=== PATIENT | female | born 1985 | race Caucasian/White ===

== ENCOUNTER 2016-12-22 21:38 | Emergency (ER) | payer MEDICAID ==
[2016-12-22 22:11] VITALS: BP 134/86
--- NOTE | 2016-12-22 22:41 | EDM.PDOC ---
[id number] 4d NECK SWELLING Time Seen by Provider: 12/22/16 22:20 Source of Information: Reports: Patient History Limitations: Reports: No Limitations - History of Present Illness INITIAL COMMENTS - FREE TEXT/NARRATIVE: 31-year-old female was had some chronic back, shoulder, and chest wall pains presents today with concerns about her posterior neck because it feels swollen and "fluffy". She is sunburned but does not feel that has anything to do with it. She also feels her throat is tight or scratchy and she is concerned she may be having some type of allergic reaction. She is mainly concerned about the discomfort in her neck. Severity: Mild Associated Symptoms: Reports: Headaches (Slight headache), Malaise. 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: - Infectious Disease History Infectious Disease History: Reports: Chicken Pox - Past Surgical History Musculoskeletal Surgical History: Reports: Other (See Below) Other Musculoskeletal Surgeries/Procedures:: l4 and l5 fussion 2014 Social & Family History - Tobacco Use Smoking Status *Q: Never Smoker Used Tobacco, but Quit: Yes Month Tobacco Last Used: 6 Second Hand Smoke Exposure: No - Caffeine Use Caffeine Use: Reports: Soda - Alcohol Use Days Per Week of Alcohol Use: 0 - Recreational Drug Use Recreational Drug Use: No ED ROS GENERAL - Review of Systems Review Of Systems: See Below Constitutional: Denies: Fever, Chills HEENT: Reports: Throat Swelling (Feels like her throat is scratchy or swollen) Respiratory: Denies: Shortness of Breath Cardiovascular: Reports: Chest Pain (Recurring right lateral chest discomfort) GI/Abdominal: Reports: No Symptoms Musculoskeletal: Reports: Neck Pain, Shoulder Pain Skin: Reports: Other (Erythema from sunburn, no blistering) ED EXAM, GENERAL - Physical Exam Exam: See Below Exam Limited By: No Limitations General Appearance: Alert, No Apparent Distress Eye Exam: Bilateral Eye: EOMI Throat/Mouth: Normal Inspection (There is no physical evidence of swelling, irritation or edema) Neck: Other (I do not appreciate a posterior swelling over the posterior neck). No: Lymphadenopathy (R), Lymphadenopathy (L) Respiratory/Chest: No Respiratory Distress, Lungs Clear Course - Vital Signs Last Recorded V/S: Last Vital Signs Temp 97.2 F 12/22/16 22:15 Pulse 86 12/22/16 22:15 Resp 12 12/22/16 22:15 BP 134/86 12/22/16 22:15 Pulse Ox 97 12/22/16 22:15 - Re-Assessments/Exams Free Text/Narrative Re-Assessment/Exam: 12/22/16 22:39 Reassured the patient that I see no physical findings of any acute inflammatory problem. She may be having some reaction to the sunburn which is chronic generalized myalgias but nothing acute or any thing that needs treatment. We discussed muscle relaxation, anti-inflammatories, just local icing and staying active and decided that no treatment at this time will be pursued. I did encourage her to see her primary care provider in the near future to discuss her chronic myalgias. Departure - Departure Time of Disposition: 22:48 Disposition: Home, Self-Care 01 Condition: good Clinical Impression: Neck pain, musculoskeletal - Discharge Information Instructions: Muscle Pain, Adult Referrals: Yanira Arnold CNM [Primary Care Provider] - Forms: ED Department Discharge Care Plan Goals: OK to continue with some ibuprofen or Tylenol and continue activity as tolerated. Recheck with your primary provider in the next 1 to 2 weeks to discuss your chronic recurring issues. Return anytime sooner if worsening such as fever or increased pain
== END 2016-12-22 22:48 | disposition home or self-care (01) ==
LOC: JP.ED 21:38
DX: M54.2 Cervicalgia (principal); Z98.1 Arthrodesis status
CPT/HCPCS: 99283

== ENCOUNTER 2017-06-13 11:18 | Emergency (ER) | payer MEDICAID ==
--- NOTE | 2017-06-13 13:21 | EDM.PDOC ---
ED HPI GENERAL MEDICAL PROBLEM - General Chief Complaint: Allergic Reaction Stated Complaint: MED REACTION-?/FACIAL SWELLING Time Seen by Provider: 06/13/17 13:00 Source of Information: Reports: Patient, Old Records History Limitations: Reports: No Limitations - History of Present Illness INITIAL COMMENTS - FREE TEXT/NARRATIVE: 32 yo female presents with slight facial puffiness that she thinks is an allergic rxn from her Flexeril. No trouble breathing or swallowing. No itching. No self tx. Called the clinic and was referred to the ER. 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) (none) - Related Data Allergies Allergy/AdvReac Type Severity Reaction Status Date / Time baclofen Allergy Facial Verified 06/13/17 13:05 Swelling gabapentin Allergy Facial Verified 06/13/17 13:05 Swelling Home Meds: Home Meds Cyclobenzaprine [Flexeril] 10 mg PO TID 06/13/17 [History] Orphenadrine [Norflex] 100 mg PO QID PRN #20 tab.er 06/13/17 [Rx] 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: - Infectious Disease History Infectious Disease History: Reports: Chicken Pox - Past Surgical History Musculoskeletal Surgical History: Reports: Other (See Below) Other Musculoskeletal Surgeries/Procedures:: l4 and l5 fussion 2014 Social & Family History - Tobacco Use Smoking Status *Q: Never Smoker Used Tobacco, but Quit: Yes Month Tobacco Last Used: 6 Second Hand Smoke Exposure: No - Caffeine Use Caffeine Use: Reports: Soda - Alcohol Use Days Per Week of Alcohol Use: 0 - Recreational Drug Use Recreational Drug Use: No ED ROS ALLERGIC REACTION - Review of Systems Review Of Systems: See Below Constitutional: Reports: No Symptoms HEENT: Reports: No Symptoms Respiratory: Reports: No Symptoms Cardiovascular: Reports: No Symptoms Endocrine: Reports: No Symptoms GI/Abdominal: Reports: No Symptoms : Reports: No Symptoms Musculoskeletal: Reports: No Symptoms Skin: Reports: Other (facial puffiness) Psychiatric: Reports: No Symptoms ED EXAM GENERAL NO PERIP PULSE - Physical Exam Exam: See Below Exam Limited By: No Limitations General Appearance: Alert, WD/WN, No Apparent Distress Eye Exam: Bilateral Eye: EOMI, Normal Inspection Ears: Normal External Exam, Normal Canal, Hearing Grossly Normal, Normal TMs Nose: Normal Inspection, Normal Mucosa, No Blood Throat/Mouth: Normal Inspection, Normal Lips, Normal Teeth, Normal Oropharynx, Normal Voice, No Airway Compromise Head: Atraumatic, Normocephalic Neck: Normal Inspection, Supple Respiratory/Chest: No Respiratory Distress, Lungs Clear, Normal Breath Sounds, No Accessory Muscle Use, Chest Non-Tender Cardiovascular: Regular Rate, Rhythm, No Edema GI/Abdominal: Normal Bowel Sounds, Soft, Non-Tender Extremities: Normal Inspection, Normal Range of Motion, Non-Tender, No Pedal Edema Neurological: Alert, Oriented, CN II-XII Intact, Normal Cognition, No Motor/ Sensory Deficits Psychiatric: Normal Affect, Normal Mood, Anxious Skin Exam: Warm, Dry, Intact, Normal Color, No Rash, Other (facial puffiness is very minimal) Lymphatic: No Adenopathy Departure - Departure Time of Disposition: 13:21 Disposition: Home, Self-Care 01 Condition: Good Clinical Impression: Medication side effect Qualifiers: Encounter type: initial encounter Qualified Code(s): T88.7XXA - Unspecified adverse effect of drug or medicament, initial encounter - Discharge Information Prescriptions: Orphenadrine [Norflex] 100 mg PO QID PRN #20 tab.er PRN Reason: Pain Referrals: Yanira Arnold CNM [Primary Care Provider] - Forms: ED Department Discharge Additional Instructions: Try holding the Flexeril and substitute Norflex. F/U with your doctor for recheck radha.
[2017-06-13 13:35] VITALS: BP 145/84
== END 2017-06-13 13:36 | disposition home or self-care (01) ==
LOC: JP.ED 11:18
DX: R22.0 Localized swelling, mass and lump, head (principal); T48.1X5A Adverse effect of skeletal muscle relaxants [neuromuscular blocking agents], initial encounter; Z88.8 Allergy status to other drugs, medicaments and biological substances
CPT/HCPCS: 99283

== ENCOUNTER 2019-08-02 19:48 | Emergency (ER) | payer MEDICAID ==
--- NOTE | 2019-08-02 20:26 | EDM.PDOC ---
ED HPI GENERAL MEDICAL PROBLEM - General Chief Complaint: Abdominal Pain Stated Complaint: FAINTED ABD BACK PAIN SOB Time Seen by Provider: 08/02/19 20:18 Source of Information: Reports: Patient, EMS, Family, RN Notes Reviewed History Limitations: Reports: No Limitations - History of Present Illness INITIAL COMMENTS - FREE TEXT/NARRATIVE: 34-year-old female presents emergency department today via EMS services, states she was at home doing fine sudden onset of epigastric abdominal pain while she was in the sauna rated the pain 10 out of 10, she did go to the bathroom which provided some relief she is rating her pain 3 out of 10 at this time has had an abdominal surgery transabdominal approach for a back surgery. 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: , 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 Musculoskeletal History: Reports: Back Pain, Chronic - Infectious Disease History Infectious Disease History: Reports: Chicken Pox - Past Surgical History Female Surgical History: Reports: Dilitation & Evacuation Musculoskeletal Surgical History: Reports: Other (See Below) Other Musculoskeletal Surgeries/Procedures:: l4 and l5 fussion 2015 revision done 2017 Social & Family History - Tobacco Use Smoking Status *Q: Never Smoker - Caffeine Use Caffeine Use: Reports: Coffee Caffeine Use Comment: occ - Recreational Drug Use Recreational Drug Use: No ED ROS GENERAL - Review of Systems Review Of Systems: See Below Constitutional: Reports: No Symptoms HEENT: Reports: No Symptoms Respiratory: Reports: No Symptoms Cardiovascular: Reports: No Symptoms GI/Abdominal: Reports: Abdominal Pain, Flatus. Denies: Constipation, Diarrhea, Nausea, Vomiting : Reports: No Symptoms Musculoskeletal: Reports: No Symptoms ED EXAM, GI/ABD - Physical Exam Exam: See Below Exam Limited By: No Limitations General Appearance: Alert, WD/WN, No Apparent Distress Respiratory/Chest: No Respiratory Distress, Lungs Clear, Normal Breath Sounds, No Accessory Muscle Use, Chest Non-Tender Cardiovascular: Regular Rate, Rhythm, No Murmur GI/Abdominal Exam: Soft, No Organomegaly, No Distention, Tender (Epigastric region) Course - Vital Signs Last Recorded V/S: Last Vital Signs Temp 97.6 F 08/02/19 19:59 Pulse 66 08/02/19 21:58 Resp 16 08/02/19 21:58 BP 112/70 08/02/19 21:58 Pulse Ox 99 08/02/19 21:58 - Orders/Labs/Meds Orders: Active Orders 24 hr Category Date Time Status Iopamidol [Isovue-300 (61%)] Med 08/02/19 20:39 Active 68 ml IV . DIRECTED PRN Lactated Ringers [Ringers, Lactated] 1,000 ml Med 08/02/19 20:30 Active IV ASDIRECTED Sodium Chloride 0.9% [Normal Saline] 74 ml Med 08/02/19 20:45 Active IV ASDIRECTED Sodium Chloride 0.9% [Saline Flush] Med 08/02/19 20:45 Active 10 ml FLUSH ONETIME Medication Orders Lactated Ringer's (Ringers, Lactated) 1,000 mls @ 999 mls/hr IV ASDIRECTED BREE Last Admin: 08/02/19 20:44 Dose: 999 mls/hr Sodium Chloride (Normal Saline) 74 mls @ 3 mls/sec IV ASDIRECTED BREE Last Admin: 08/02/19 20:59 Dose: 3 mls/sec Iopamidol (Isovue-300 (61%)) 68 ml IV . DIRECTED PRN PRN Reason: RADIOLOGY EXAM Stop: 08/03/19 20:40 Last Admin: 08/02/19 20:59 Dose: 68 ml Sodium Chloride (Saline Flush) 10 ml FLUSH ONETIME BREE Last Admin: 08/02/19 21:00 Dose: 10 ml Labs: Laboratory Tests 08/02/19 08/02/19 08/02/19 Range/Units 20:34 20:34 20:34 WBC 5.4 (4.5-11.0) K/uL RBC 3.66 (3.30-5.50) M/uL Hgb 10.7 L (12.0-15.0) g/dL Hct 33.3 L (36.0-48.0) % MCV 91 (80-98) fL MCH 29 (27-31) pg MCHC 32 (32-36) % Plt Count 188 (150-400) K/uL Neut % (Auto) 66 (36-66) % Lymph % (Auto) 26 (24-44) % [place] % (Auto) 6 (2-6) % Eos % (Auto) 1 L (2-4) % Baso % (Auto) 0 (0-1) % Sodium 138 L (140-148) mmol/L Potassium 3.6 (3.6-5.2) mmol/L Chloride 103 (100-108) mmol/L Carbon Dioxide 26 (21-32) mmol/L Anion Gap 12.6 (5.0-14.0) mmol/L BUN 11 (7-18) mg/dL Creatinine 0.7 (0.6-1.0) mg/dL Est Cr Clr Drug Dosing 83.54 mL/min Estimated GFR (MDRD) > 60 (>60) Glucose 112 H (74-106) mg/dL Lactic Acid 0.9 (0.4-2.0) mmol/L Calcium 8.3 L (8.5-10.1) mg/dL Total Bilirubin 0.3 (0.2-1.0) mg/dL AST 16 (15-37) U/L ALT 19 (12-78) U/L Alkaline Phosphatase 38 L (46-116) U/L Total Protein 6.5 (6.4-8.2) g/dL Albumin 3.6 (3.4-5.0) g/dL Globulin 2.9 (2.3-3.5) g/dL Albumin/Globulin Ratio 1.2 (1.2-2.2) Lipase 178 (73-393) U/L Urine Color (YELLOW) Urine Appearance (CLEAR) Urine pH (5.0-8.0) Ur Specific [place] (1.008-1.030) Urine Protein (NEGATIVE) mg/dL Urine Glucose (UA) (NEGATIVE) mg/dL Urine Ketones (NEGATIVE) mg/dL Urine Occult Blood (NEGATIVE) Urine Nitrite (NEGATIVE) Urine Bilirubin (NEGATIVE) Urine Urobilinogen (0.2-1.0) EU/dL Ur Leukocyte Esterase (NEGATIVE) Urine RBC (0-5) Urine WBC (0-5) Ur Epithelial Cells Urine Bacteria Urine Mucus Urine HCG, Qual 08/02/19 08/02/19 Range/Units 20:39 20:39 WBC (4.5-11.0) K/uL RBC (3.30-5.50) M/uL Hgb (12.0-15.0) g/dL Hct (36.0-48.0) % MCV (80-98) fL MCH (27-31) pg MCHC (32-36) % Plt Count (150-400) K/uL Neut % (Auto) (36-66) % Lymph % (Auto) (24-44) % [place] % (Auto) (2-6) % Eos % (Auto) (2-4) % Baso % (Auto) (0-1) % Sodium (140-148) mmol/L Potassium (3.6-5.2) mmol/L Chloride (100-108) mmol/L Carbon Dioxide (21-32) mmol/L Anion Gap (5.0-14.0) mmol/L BUN (7-18) mg/dL Creatinine (0.6-1.0) mg/dL Est Cr Clr Drug Dosing mL/min Estimated GFR (MDRD) (>60) Glucose (74-106) mg/dL Lactic Acid (0.4-2.0) mmol/L Calcium (8.5-10.1) mg/dL Total Bilirubin (0.2-1.0) mg/dL AST (15-37) U/L ALT (12-78) U/L Alkaline Phosphatase (46-116) U/L Total Protein (6.4-8.2) g/dL Albumin (3.4-5.0) g/dL Globulin (2.3-3.5) g/dL Albumin/Globulin Ratio (1.2-2.2) Lipase (73-393) U/L Urine Color Yellow (YELLOW) Urine Appearance Cloudy A (CLEAR) Urine pH 8.5 H (5.0-8.0) Ur Specific [place] 1.020 (1.008-1.030) Urine Protein Negative (NEGATIVE) mg/dL Urine Glucose (UA) Negative (NEGATIVE) mg/dL Urine Ketones Negative (NEGATIVE) mg/dL Urine Occult Blood Negative (NEGATIVE) Urine Nitrite Negative (NEGATIVE) Urine Bilirubin Negative (NEGATIVE) Urine Urobilinogen 0.2 (0.2-1.0) EU/dL Ur Leukocyte Esterase Negative (NEGATIVE) Urine RBC 0-5 (0-5) Urine WBC 0-5 (0-5) Ur Epithelial Cells Many Urine Bacteria Not seen Urine Mucus Many Urine HCG, Qual Negative Meds: Medications Generic Name Dose Route Start Last Admin Trade Name Freq PRN Reason Stop Dose Admin Lactated Ringer's 1,000 mls @ 999 mls/hr 08/02/19 20:30 08/02/19 20:44 Ringers, Lactated IV 999 mls/hr ASDIRECTED BREE Administration Sodium Chloride 74 mls @ 3 mls/sec 08/02/19 20:45 08/02/19 20:59 Normal Saline IV 3 mls/sec ASDIRECTED BREE Administration Iopamidol 68 ml 08/02/19 20:39 08/02/19 20:59 Isovue-300 (61%) IV 08/03/19 20:40 68 ml . DIRECTED PRN Administration RADIOLOGY EXAM Sodium Chloride 10 ml 08/02/19 20:45 08/02/19 21:00 Saline Flush FLUSH 10 ml ONETIME BREE Administration Departure - Departure Time of Disposition: 22:09 Disposition: Home, Self-Care 01 Condition: Fair Clinical Impression: Abdominal pain Qualifiers: Abdominal location: epigastric Qualified Code(s): R10.13 - Epigastric pain - Discharge Information Referrals: Yanira Arnold CNM [Primary Care Provider] - Forms: ED Department Discharge Additional Instructions: Continue to use Tylenol or Motrin as needed for pain control, please followup with your primary care provider in 3-5 days if not better, please call return to the emergency department with worsening of symptoms. Sepsis Event Note - Evaluation Sepsis Screening Result: No Definite Risk - Focused Exam Vital Signs: Vital Signs Temp Pulse Resp BP Pulse Ox 08/02/19 21:58 66 16 112/70 99 08/02/19 19:59 97.6 F 83 16 113/72 99 08/02/19 19:57 97.6 F 83 16 113/72 99 Date Exam was Performed: 08/02/19 Time Exam was Performed: 22:08 - My Orders Last 24 Hours: My Active Orders 08/02/19 20:30 Lactated Ringers [Ringers, Lactated] 1,000 ml IV ASDIRECTED 08/02/19 20:39 Iopamidol [Isovue-300 (61%)] 68 ml IV . DIRECTED PRN 08/02/19 20:45 Sodium Chloride 0.9% [Normal Saline] 74 ml IV ASDIRECTED Sodium Chloride 0.9% [Saline Flush] 10 ml FLUSH ONETIME - Assessment/Plan Last 24 Hours: My Active Orders 08/02/19 20:30 Lactated Ringers [Ringers, Lactated] 1,000 ml IV ASDIRECTED 08/02/19 20:39 Iopamidol [Isovue-300 (61%)] 68 ml IV . DIRECTED PRN 08/02/19 20:45 Sodium Chloride 0.9% [Normal Saline] 74 ml IV ASDIRECTED Sodium Chloride 0.9% [Saline Flush] 10 ml FLUSH ONETIME Plan: Assessment Acuity = acute Site and laterality = epigastric abdominal pain Etiology = unknown Manifestations = none Location of injury = Home Lab values = CBC, CMP, urinalysis unremarkable CT scan does not show any acute process other than large amount of stool Plan I did review lab work CT scan results with her she is again try watchful waiting Tylenol Motrin as needed for pain control follow-up primary care 3 to 5 days if not better This note was dictated using [employer] voice recognition software please call with any questions on syntax or grammar.
[2019-08-02] MEDS ORDERED: Lactated Ringers 1,000 ML IV SCH (20:30)
[2019-08-02] MEDS ORDERED: Iopamidol 612 MG/ML 100 ML Bottle IV PRN (20:39)
[2019-08-02] MEDS ORDERED: Sodium Chloride 0.9% 10 ML Syringe FLUSH SCH (20:45)
[2019-08-02 21:58] VITALS: BP 112/70; PULSE 66
--- NOTE | 2019-08-02 22:00 | CRLCT ---
INDICATION: Epigastric pain. TECHNIQUE: CT abdomen and pelvis acquired with 68 cc of Isovue-300 IV contrast. COMPARISON: None available. FINDINGS: Lower chest: Lung bases are clear. No pleural or pericardial effusions. Liver: No focal lesion. There is mild periportal edema. Trace fluid is also present adjacent to the tip of the liver as seen on image 67 of series 2. the portal, splenic and superior mesenteric veins as imaged are patent. Spleen: Unremarkable. Pancreas: Unremarkable. No CT evidence of acute pancreatitis. Gallbladder and bile ducts: No calcified gallstones or biliary ductal dilatation. Kidneys: Multiple low-density left renal lesions are most consistent with cysts. Bilateral kidneys are otherwise unremarkable. No hydronephrosis. Adrenal glands: Unremarkable. GI tract: No focal inflammatory changes evident in the colon about the hepatic flexure near the trace perihepatic fluid. No evidence of bowel obstruction or acute appendicitis. No free intraperitoneal gas. Vascular structures: Unremarkable. Lymph nodes: Unremarkable. Pelvic Organs: Low-density in the left adnexal region measures 2.7 cm. Uterus and right adnexal region as imaged are unremarkable. Bladder is unremarkable. Trace pelvic free fluid. Bones: Posterior spinal fusion changes of L4 through S1 with long bilateral sacroiliac joint screws appears intact. Anterior interbody fusion changes at L5-S1 also appear intact. No acute osseous abnormality. IMPRESSION: 1. Mild periportal edema with trace perihepatic fluid adjacent to the tip of the liver. Findings are nonspecific, however, correlation for possible hepatitis is recommended. 2. No CT evidence of acute pancreatitis. 3. No bowel obstruction or free intraperitoneal gas. 4. Suspected dominant follicle or cyst in the left ovary measuring 2.7 cm. Trace pelvic free fluid. Dictated by Maco Ricks MD @ 08/02/2019 9:58:35 PM Dictated by: Maco Ricks MD @ 08/02/2019 21:58:55 (Electronically Signed)
== END 2019-08-02 22:28 | disposition home or self-care (01) ==
LOC: JP.ED 19:48
DX: R10.13 Epigastric pain (principal); Z88.2 Allergy status to sulfonamides; Z91.011 Allergy to milk products
CPT/HCPCS: 36415; 74177; 80053; 81001; 81025; 83605; 83690; 85025; 96360; 99285; J7050; J7120; Q9967

== ENCOUNTER 2020-09-10 21:59 | Emergency (ER) | payer MEDICAID ==
[2020-09-10] MEDS ORDERED: Sodium Chloride 0.9% 10 ML Syringe FLUSH PRN (22:20)
[2020-09-10 22:21] VITALS: BP 124/77; PULSE 91
--- NOTE | 2020-09-10 22:48 | EDM.PDOC ---
ED HPI GENERAL MEDICAL PROBLEM - General Chief Complaint: Abdominal Pain Stated Complaint: ABD PAIN AND BACK PAIN Time Seen by Provider: 09/10/20 22:25 Source of Information: Reports: Patient History Limitations: Reports: No Limitations - History of Present Illness INITIAL COMMENTS - FREE TEXT/NARRATIVE: Samaria is a 35-year-old female presenting to the ED for evaluation of persistent and worsening epigastric pain radiating through to the back. Patient has been dealing with abdominal pain and dietary issues for the last several years, however, they have become significantly worse over the last several days. Has been very persistent in the epigastric and right upper quadrant radiating into her back and right shoulder. She has had some nausea but no vomiting. She denies any diarrhea. She has not had any constipation. She woke this morning with diaphoresis and chills but no fever. She has not had any difficulty breathing or cough. She does report having multiple food intolerances and tries to avoid dairy and gluten. She has had significant allergy work-up for food allergies. She has had intra-abdominal surgery for anterior and posterior fixation of her lumbar spine. She still has her appendix and gallbladder. Abdomen Pain Score (Numeric/FACES): 8 - Related Data Allergies Allergy/AdvReac Type Severity Reaction Status Date / Time Dairy Products Allergy Other Verified 09/10/20 22:20 Sulfa (Sulfonamide Allergy Cannot Verified 09/10/20 22:20 Antibiotics) Remember Home Meds: Home Meds Acetaminophen [Tylenol Extra Strength] 1,000 mg PO QID 08/02/19 [History] Baclofen 10 mg PO DAILY 08/02/19 [History] Gabapentin [Neurontin] 100 mg PO DAILY 08/02/19 [History] Gabapentin [Neurontin] 400 mg PO BEDTIME 08/02/19 [History] Alendronate Sodium [Fosamax] 70 mg PO ASDIRECTED 09/10/20 [History] Past Medical History HEENT History: Reports: None Cardiovascular History: Reports: None Respiratory History: Reports: None Gastrointestinal History: Reports: None Genitourinary History: Reports: None 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: , 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 Musculoskeletal History: Reports: Back Pain, Chronic Psychiatric History: Reports: None Endocrine/Metabolic History: Reports: None Hematologic History: Reports: None Immunologic History: Reports: None Oncologic (Cancer) History: Reports: None Dermatologic History: Reports: None - Infectious Disease History Infectious Disease History: Reports: Chicken Pox - Past Surgical History HEENT Surgical History: Reports: None GI Surgical History: Reports: None Female Surgical History: Reports: Dilitation & Evacuation Neurological Surgical History: Reports: Spinal Fusion Musculoskeletal Surgical History: Reports: Other (See Below) Other Musculoskeletal Surgeries/Procedures:: l4 and l5 fussion 2015 revision done 2017 Social & Family History - Tobacco Use Tobacco Use Status *Q: Never Tobacco User - Caffeine Use Caffeine Use: Reports: Coffee Caffeine Use Comment: occ - Recreational Drug Use Recreational Drug Use: No ED ROS GENERAL - Review of Systems Review Of Systems: See Below Constitutional: Reports: Chills, Diaphoresis, Decreased Appetite HEENT: Reports: No Symptoms Respiratory: Reports: No Symptoms Cardiovascular: Reports: No Symptoms Endocrine: Reports: No Symptoms GI/Abdominal: Reports: Abdominal Pain (Epigastric and right upper quadrant radiating to the back and right shoulder. Pain worsens after eating.), Nausea, Other (Patient avoids gluten and some dairy. Some foods make her feel worse.). Denies: Constipation, Diarrhea, Vomiting : Reports: No Symptoms Musculoskeletal: Reports: No Symptoms Skin: Reports: No Symptoms Neurological: Reports: No Symptoms Psychiatric: Reports: Anxiety Hematologic/Lymphatic: Reports: No Symptoms Immunologic: Reports: Food Allergy ED EXAM, GI/ABD - Physical Exam Exam: See Below Exam Limited By: No Limitations General Appearance: Alert, No Apparent Distress Eyes: Bilateral: EOMI Head: Atraumatic, Normocephalic Neck: Normal Inspection, Supple, Non-Tender Respiratory/Chest: No Respiratory Distress, Lungs Clear, Normal Breath Sounds Cardiovascular: Normal Peripheral Pulses, Regular Rate, Rhythm, No Murmur GI/Abdominal Exam: Normal Bowel Sounds, Soft, Guarding (Positive Gallego sign right upper quadrant), Tender (Epigastric and right upper quadrant. Positive Gallego sign.), Hepatomegaly (Enlargement of the right lobe of the liver), Other (Very loud abdominal bruit in the epigastric region near the SMA, renal arteries, and inferior mesenteric artery.). No: Rigid, Rebound Back Exam: Normal Inspection, Full Range of Motion Extremities: Normal Inspection, Normal Range of Motion Neurological: Alert, Oriented, Normal Cognition, No Motor/Sensory Deficits Psychiatric: Normal Affect, Anxious Skin Exam: Warm, Dry Lymphatic: No Adenopathy Course - Vital Signs Last Recorded V/S: Last Vital Signs Temp 36.2 C 01/31/21 22:25 Pulse 91 09/10/20 22:25 Resp 14 09/10/20 22:25 BP 124/77 09/10/20 22:25 Pulse Ox 99 09/10/20 22:25 - Orders/Labs/Meds Orders: Active Orders 24 hr Category Date Time Status Sodium Chloride 0.9% [Saline Flush] Med 09/10/20 22:20 Active 10 ml FLUSH ASDIRECTED PRN Saline Lock Insert [OM.PC] Routine Oth 09/10/20 22:20 Ordered Medication Orders Sodium Chloride (Saline Flush) 10 ml FLUSH ASDIRECTED PRN PRN Reason: Keep Vein Open Labs: Laboratory Tests 09/10/20 09/10/20 09/10/20 Range/Units 22:52 22:52 22:52 WBC 6.1 (4.5-11.0) K/uL RBC 4.07 (3.30-5.50) M/uL Hgb 11.9 L (12.0-15.0) g/dL Hct 37.7 (36.0-48.0) % MCV 93 (80-98) fL MCH 29 (27-31) pg MCHC 32 (32-36) % Plt Count 204 (150-400) K/uL Neut % (Auto) 56 (36-66) % Lymph % (Auto) 32 (24-44) % [place] % (Auto) 9 H (2-6) % Eos % (Auto) 2 (2-4) % Baso % (Auto) 1 (0-1) % Sodium 143 (140-148) mmol/L Potassium 3.7 (3.6-5.2) mmol/L Chloride 105 (100-108) mmol/L Carbon Dioxide 28 (21-32) mmol/L Anion Gap 9.8 (5.0-14.0) mmol/L BUN 9 (7-18) mg/dL Creatinine 0.6 (0.6-1.0) mg/dL Est Cr Clr Drug Dosing 94.44 mL/min Estimated GFR (MDRD) > 60 (>60) Glucose 106 (74-106) mg/dL Lactic Acid 0.8 (0.4-2.0) mmol/L Calcium 8.9 (8.5-10.1) mg/dL Total Bilirubin 0.3 (0.2-1.0) mg/dL AST 18 (15-37) U/L ALT 24 (12-78) U/L Alkaline Phosphatase 31 L (46-116) U/L Total Protein 7.0 (6.4-8.2) g/dL Albumin 4.2 (3.4-5.0) g/dL Globulin 2.8 (2.3-3.5) g/dL Albumin/Globulin Ratio 1.5 (1.2-2.2) Lipase 209 (73-393) U/L Urine Color (YELLOW) Urine Appearance (CLEAR) Urine pH (5.0-8.0) Ur Specific [place] (1.008-1.030) Urine Protein (NEGATIVE) mg/dL Urine Glucose (UA) (NEGATIVE) mg/dL Urine Ketones (NEGATIVE) mg/dL Urine Occult Blood (NEGATIVE) Urine Nitrite (NEGATIVE) Urine Bilirubin (NEGATIVE) Urine Urobilinogen (0.2-1.0) EU/dL Ur Leukocyte Esterase (NEGATIVE) Urine RBC (0-5) Urine WBC (0-5) Ur Epithelial Cells Amorphous Sediment Urine Bacteria Urine Mucus 09/10/20 Range/Units 23:04 WBC (4.5-11.0) K/uL RBC (3.30-5.50) M/uL Hgb (12.0-15.0) g/dL Hct (36.0-48.0) % MCV (80-98) fL MCH (27-31) pg MCHC (32-36) % Plt Count (150-400) K/uL Neut % (Auto) (36-66) % Lymph % (Auto) (24-44) % [place] % (Auto) (2-6) % Eos % (Auto) (2-4) % Baso % (Auto) (0-1) % Sodium (140-148) mmol/L Potassium (3.6-5.2) mmol/L Chloride (100-108) mmol/L Carbon Dioxide (21-32) mmol/L Anion Gap (5.0-14.0) mmol/L BUN (7-18) mg/dL Creatinine (0.6-1.0) mg/dL Est Cr Clr Drug Dosing mL/min Estimated GFR (MDRD) (>60) Glucose (74-106) mg/dL Lactic Acid (0.4-2.0) mmol/L Calcium (8.5-10.1) mg/dL Total Bilirubin (0.2-1.0) mg/dL AST (15-37) U/L ALT (12-78) U/L Alkaline Phosphatase (46-116) U/L Total Protein (6.4-8.2) g/dL Albumin (3.4-5.0) g/dL Globulin (2.3-3.5) g/dL Albumin/Globulin Ratio (1.2-2.2) Lipase (73-393) U/L Urine Color Yellow (YELLOW) Urine Appearance Clear (CLEAR) Urine pH 7.5 (5.0-8.0) Ur Specific [place] 1.015 (1.008-1.030) Urine Protein Negative (NEGATIVE) mg/dL Urine Glucose (UA) Negative (NEGATIVE) mg/dL Urine Ketones Negative (NEGATIVE) mg/dL Urine Occult Blood Trace-lysed H (NEGATIVE) Urine Nitrite Negative (NEGATIVE) Urine Bilirubin Negative (NEGATIVE) Urine Urobilinogen 0.2 (0.2-1.0) EU/dL Ur Leukocyte Esterase Negative (NEGATIVE) Urine RBC 0-5 (0-5) Urine WBC 0-5 (0-5) Ur Epithelial Cells Few Amorphous Sediment Not seen Urine Bacteria Few Urine Mucus Not seen Meds: Medications Generic Name Dose Route Start Last Admin Trade Name Freq PRN Reason Stop Dose Admin Sodium Chloride 10 ml 09/10/20 22:20 Saline Flush FLUSH ASDIRECTED PRN Keep Vein Open Discontinued Medications Generic Name Dose Route Start Last Admin Trade Name Freandi PRN Reason Stop Dose Admin Sodium Chloride 70 mls @ 3 mls/sec 09/10/20 22:52 09/10/20 23:05 Normal Saline IV 09/10/20 22:53 3 mls/sec ASDIRECTED STA Administration Iopamidol 69 ml 09/10/20 22:51 09/10/20 23:05 Isovue-300 (61%) IV 09/10/20 22:52 100 ml . DIRECTED STA Administration - Re-Assessments/Exams Free Text/Narrative Re-Assessment/Exam: 09/11/20 00:34 I reviewed the patient's labs and CT of the abdomen and pelvis. It appears that possible cause for her epigastric abdominal pain is excessive flatus. In addition, we did discuss that she has chronic pelvic congestion syndrome. Information from the [facility] website was provided to her for this as this is where she normally goes to receive care. There were no significant findings in her labs. I advised her on using one of the simethicone-based medications to help break up the excessive flatus. In addition we discussed avoiding dairy with lactose or carbonated beverages which are likely contributing to the flatus. Indications to return to the ED were discussed. I reassured her of the lack of other findings. All questions were answered prior to discharge. Departure - Departure Time of Disposition: 00:27 Disposition: Home, Self-Care 01 Condition: Good Clinical Impression: Epigastric abdominal pain, Excessive flatus, Pelvic congestion syndrome - Discharge Information *PRESCRIPTION DRUG MONITORING PROGRAM REVIEWED*: Not Applicable *COPY OF PRESCRIPTION DRUG MONITORING REPORT IN PATIENT VETO: Not Applicable Instructions: Abdominal Bloating, Abdominal Pain, Adult, [id number] Referrals: Yanira Arnold CNM [Primary Care Provider] - Forms: ED Department Discharge Care Plan Goals: I would recommend using one of the simethicone-based medications like Maalox, Gas-X, Jamel, or Di-Gel to help break up the excess flatus. This is likely the cause of your abdominal pain. I have included some information from [facility] website for pelvic congestion syndrome for your reading. You may want to touch base with your doctor at [facility] to discuss whether this needs to be worked up further. Sepsis Event Note (ED) - Evaluation Sepsis Screening Result: No Definite Risk - Focused Exam Vital Signs: Vital Signs Temp Pulse Resp BP Pulse Ox 09/10/20 22:25 36.2 C 91 14 124/77 99 09/10/20 22:20 36.2 C 91 14 124/77 99 - Problem List & Annotations (1) Epigastric abdominal pain SNOMED Code(s): 65564776 Code(s): R10.13 - EPIGASTRIC PAIN Status: Acute Priority: High Current Visit: Yes (2) Excessive flatus SNOMED Code(s): 56623480 Code(s): R14.3 - FLATULENCE Status: Acute Priority: High Current Visit: Yes (3) Pelvic congestion syndrome SNOMED Code(s): 00719381 Code(s): N94.89 - OTH COND ASSOC W FEMALE GENITAL ORGANS AND MENSTRUAL CYCLE Status: Chronic Priority: Medium Current Visit: Yes - Problem List Review Problem List Initiated/Reviewed/Updated: Yes - My Orders Last 24 Hours: My Active Orders 09/10/20 22:20 Sodium Chloride 0.9% [Saline Flush] 10 ml FLUSH ASDIRECTED PRN Saline Lock Insert [OM.PC] Routine - Assessment/Plan Last 24 Hours: My Active Orders 09/10/20 22:20 Sodium Chloride 0.9% [Saline Flush] 10 ml FLUSH ASDIRECTED PRN Saline Lock Insert [OM.PC] Routine
[2020-09-10] MEDS ORDERED: Iopamidol 612 MG/ML 100 ML Bottle IV STA (22:51)
--- NOTE | 2020-09-10 23:52 | CRLCT ---
INDICATION: Abdominal pain with loud epigastric bruits. COMPARISON: CT of the abdomen and pelvis with contrast from 08/02/2019 TECHNIQUE: CT examination of the abdomen and pelvis was performed with the uneventful intravenous administration of 69 cc of Isovue-300 while 3 mm thick axial sections were obtained from the lung bases through the pubic symphysis. Oral contrast was not administered. Please note that all CT scans at this facility use dose modulation, iterative reconstruction, and/or weight-based dosing when appropriate to reduce radiation dose to as low as reasonably achievable. FINDINGS: In the abdomen, the liver, spleen, pancreas, and adrenals are normal in appearance. There is stable appearance of multiple small left renal cysts. The right kidney has no cysts. There is no sign of any calculus or obstruction. The gallbladder is normal in appearance. The abdominal aorta is normal in caliber with no sign of dilatation. There is no sign of retroperitoneal mass or adenopathy. The stomach, loops of small bowel, and colon in the abdomen are normal in appearance. In the pelvis, the appendix is normal in appearance with no sign of inflammatory process. The loops of small bowel and colon in the pelvis are normal in appearance. Again seen is prominent left and moderate right periuterine vascular engorgement with drainage into both ovarian veins, findings of pelvic congestion syndrome. The uterus is mildly enlarged, with no distinct mass, unchanged in appearance compared to the previous study. The low-density region previously seen in the left ovary has resolved consistent with resolution of a cyst. The adnexal regions are normal in appearance. The urinary bladder is normal in appearance. There is no sign of pelvic or inguinal mass or adenopathy. There is no sign of free air or free fluid in the abdomen or pelvis. The lung bases are clear. Again seen is mild scoliosis of the thoracic and lumbar spine convex towards the left. Again seen are changes of fusion from L4 through S1 with bilateral sacroiliac joint effusion. There continues to be grade 1 anterior subluxation of L5 on S1. IMPRESSION: Nothing seen to explain the patient`s abdominal pain or epigastric bruits. CT of the abdomen show stable appearance of multiple simple cysts in the left kidney. CT of the pelvis shows no change in prominent left and moderate right periuterine vascular engorgement with drainage into both ovarian veins, findings of pelvic congestion syndrome. Stable mild enlargement of the uterus. Resolution of previously seen small left ovarian cyst. Please note that all CT scans at this facility use dose modulation, iterative reconstruction, and/or weight-based dosing when appropriate to reduce radiation dose to as low as reasonably achievable. Dictated by Eliot Mcnair MD @ Sep 10 2020 11:42PM Signed by Dr. Eliot Mcnair @ Sep 10 2020 11:51PM
== END 2020-09-10 23:30 | disposition home or self-care (01) ==
LOC: JP.ED 21:59
DX: N94.89 Other specified conditions associated with female genital organs and menstrual cycle (principal); R14.3 Flatulence; Z88.2 Allergy status to sulfonamides; Z91.011 Allergy to milk products
CPT/HCPCS: 36415; 74177; 80053; 81001; 83605; 83690; 85025; 99283; 99284; Q9967

== ENCOUNTER 2022-05-29 13:52 | Emergency (ER) | payer MEDICAID ==
[2022-05-29] MEDS ORDERED: Sodium Chloride 0.9% 10 ML Syringe FLUSH PRN (15:03)
[2022-05-29] MEDS ORDERED: Ondansetron 4 MG/2 ML SDV IVPUSH ONE (15:03)
[2022-05-29] MEDS ORDERED: HYDROmorphone 0.5 MG/0.5 ML Syringe IVPUSH ONE (15:03)
[2022-05-29] MEDS ORDERED: Sodium Chloride 0.9% 1,000 ML IV SCH (15:15)
[2022-05-29 16:33] VITALS: BP 108/59; PULSE 86
== END 2022-05-29 17:40 | disposition home or self-care (01) ==
LOC: JP.ED 13:52
DX: G97.82 Other postprocedural complications and disorders of nervous system (principal); Z91.011 Allergy to milk products; Z88.2 Allergy status to sulfonamides; Z79.899 Other long term (current) drug therapy
CPT/HCPCS: 96361; 96374; 96375; 99283; J1170; J2405; J7030

== ENCOUNTER 2022-06-14 09:02 | Emergency (ER) | payer MEDICAID ==
[2022-06-14 09:18] VITALS: BP 130/86; PULSE 93
[2022-06-14] MEDS ORDERED: Sodium Chloride 0.9% 10 ML Syringe FLUSH PRN (09:32)
[2022-06-14] MEDS ORDERED: Sodium Chloride 0.9% 500 ML IV ONE (09:33)
[2022-06-14] MEDS ORDERED: Ketorolac 30 MG/ML SDV IVPUSH ONE (10:07)
[2022-06-14 10:40] LABS: CORONAVIRUS COVID-19 NAA NEGATIVE (NEGATIVE)
== END 2022-06-14 11:55 | disposition home or self-care (01) ==
LOC: JP.ED 09:02
DX: R51.9 Headache, unspecified (principal); Z88.2 Allergy status to sulfonamides; Z91.011 Allergy to milk products; Z79.899 Other long term (current) drug therapy; Z20.822 Contact with and (suspected) exposure to COVID-19
CPT/HCPCS: 0241U; 36415; 80048; 84145; 85025; 85651; 86140; 96361; 96374; 99284; J1885; J3490; J7040